=== PATIENT | female | born 1940 | race Asian ===

== ENCOUNTER → 2024-05-25 | Outpatient (CLI) | payer MEDICARE ==
--- NOTE | 2024-05-25 12:35 | CT ---
EXAMINATION TYPE: CT brain wo con DATE OF EXAM: 05/25/2024 COMPARISON: None CLINICAL INDICATION: Female, 83 years old with history of R45.1 RESTLESSNESS AND AGITATION; PHH, mati ry loss CT DLP: 1153 mGycm Automated exposure control for dose reduction was used. Findings: The ventricles, basal cisterns and sulci over convexities are mildly enlarged consistent with mildly generalized atrophy, appropriate for the patient's age. There is mild decreased density in the periventricular white matter consistent with chronic ischemic white matter demyelination. 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 There is no mass effect or shift of midline structures. There is no acute intra or extra-axial hemorrhage. The posterior fossa including the brainstem, fourth ventricle and cerebellopontine angles appear liz sly normal. The intraorbital contents appear normal symmetric Visualized paranasal sinuses and mastoid air cells are well aerated. Calvarium is intact. IMPRESSION: 1. Age appropriate senescent changes as described above. 2. 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 3. No acute bleed or mass effect. [facility], , 05/25/2024 12:33 PM
== END | disposition home or self-care (01) ==
LOC: EDSEX → RADCTMAIN 11:58
PROVIDERS: ATTEND Family Medicine
DX: F03.90 Unspecified dementia, unspecified severity, without behavioral disturbance, psychotic disturbance, mood disturbance, and anxiety (principal); R45.1 Restlessness and agitation; Z86.73 Personal history of transient ischemic attack (TIA), and cerebral infarction without residual deficits
CPT/HCPCS: 70450

== ENCOUNTER → 2024-08-15 | Outpatient (CLI) | payer MEDICARE | END | disposition home or self-care (01) | LOC: LABWHC1 10:35 | PROVIDERS: ATTEND Family Medicine | DX: R73.01 Impaired fasting glucose (principal) | CPT/HCPCS: 36415; 83036 ==